=== PATIENT | male | born 1970 | race Caucasian/White ===

== ENCOUNTER 2023-04-25 08:53 | Outpatient (AMB) | payer OTHER, SELFPAY ==
[2023-04-25 08:57] VITALS: BP 120/58; PULSE 78; BMI 44.9
--- NOTE | 2023-04-25 08:57 | MHC.OFFVIS ---
Intake Vital Signs 04/25/23 08:57 Height 5 ft 9 in Weight 304 lb 3.806 oz BMI 44.9 BP 120/58 L Blood Pressure Location Lt brachial Position Sitting Pulse 78 Intake Visit Reasons: Heartburn Intake Note: Lio presents in the office as a new patient for heartburn. CC: For the last year - when he lays down at night he gets severe hearturn. Allergies No Known Allergies [No Known Allergies*] Allergy (Unverified 04/25/23 09:01) HPI HPI Comments History of Present Illness Details This is a 52-year-old gentleman with past medical history of obesity, hypertension, remote history of DVT on Eliquis, who presents to the office for GERD. Patient reports symptom onset almost a year ago -describes it as heartburn mostly at nighttime when he lays down. Triggered typically by fatty or spicy food. He was started on pantoprazole 40 mg in AM by his PCP 3 months ago, despite that has symptoms at least 4/7 nights. This is not associated with any nausea, vomiting, regurgitation, unintentional weight loss or change in bowel habits. Patient has no family history of esophageal or gastric cancer. Of note has not had colorectal cancer screening. PFSH Surgical History Hx of hernia repair Social History Alcohol intake: current Alcohol intake frequency: a few times a week Patient Tobacco Use Status: Current someday Tobacco user Cigarettes Per Day: 1 Use of substances other than those prescribed or required for medical reasons: No Review of Systems Const All systems reviewed & are unremarkable except as noted in HPI and below Physical Exam Vital Signs: Last Vital Signs Pulse 78 04/25/23 08:57 BP 120/58 L 04/25/23 08:57 BMI result Body Mass Index 44.9 Gen appear: NAD HEENT: nonicteric, no cervical lymphadenopathy Chest: CTA CVS: Regular S1/S2 Abd: soft, nontender, nondistended, bowel sounds + Ext: no peripheral edema Neuro: A/Ox3, noted to move all extremities spontaneously Psych: interacting appropriately Assessment & Plan Assessment & Plan (1) GERD (gastroesophageal reflux disease): Code(s): K21.9 - Gastro-esophageal reflux disease without esophagitis (2) Colon cancer screening: Code(s): Z12.11 - Encounter for screening for malignant neoplasm of colon (3) Chronic anticoagulation: Code(s): 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 Sx most consistent with GERD with obesity, sex and smoking as risk factors. Recommend: - Switch pantoprazole to PM - EGD for further eval to r/o esophagitis/gastritis as well as to screen for BE - Pt advised to HOLD PPI x 2 weeks prior to the procedure - Avoid eating within 3 hours of laying down - Wedge pillow 2. CRC screening: Will schedule him for a colonoscopy at the same as the EGD. Split PEG prep instructions reviewed with the pt. He was advised to get updated renal function test done. If normal, will need to hold eliquis x 2 days. Follow up after scopes/ Orders: Orders Basic Metabolic Panel Today K21.9 - Gastro-esophageal reflux disease without esophagitis Ferritin Today K21.9 - Gastro-esophageal reflux disease without esophagitis Complete Blood Count no Diff Today K21.9 - Gastro-esophageal reflux disease without esophagitis Medications: New peg 3350-electrolytes 236-22.74-6.74 -5.86 gram (Golytely) as per split prep instructions, until fecal effluent is clear 240 mL PO Q10M 4,000 mL 0RF colonoscopy Coding Level of Care Code New Pt Level 4 (51202) Diagnoses GERD (gastroesophageal reflux disease) K21.9 Colon cancer screening Z12.11 Chronic anticoagulation Z79.01
== END 2023-04-25 09:48 | disposition home or self-care (01) ==
PROVIDERS: PCP Internal Medicine; Visit Provider Internal Medicine
DX: K21.9 Gastro-esophageal reflux disease without esophagitis (principal); Z12.11 Encounter for screening for malignant neoplasm of colon; Z79.01 Long term (current) use of anticoagulants
CPT/HCPCS: 99204

== ENCOUNTER → 2023-04-25 08:53 | Outpatient (BNVA) | payer OTHER, SELFPAY | PROVIDERS: PCP Internal Medicine; Visit Provider Internal Medicine ==

== ENCOUNTER 2023-05-11 15:14 | Outpatient (REF) | payer OTHER, SELFPAY ==
[2023-05-11 15:32] LABS: Hematocrit 40.9 % (42.0-52.0); Hemoglobin 13.7 g/dl (14.0-18.0); Mean Corpuscular HGB Conc 33.5 g/dl (31.0-36.0); Mean Corpuscular Hemoglobin 31.4 pg (27.0-33.0); Mean Corpuscular Volume 93.8 fL (80.0-98.0); Mean Platelet Volume 8.5 fL (9.4-12.4); Platelet Count 181 X10*3/uL (160-400); Red Blood Count 4.36 X10*6/uL (4.60-5.80); Red Cell Distribution Width 13.9 % (11.0-16.0); White Blood Count 12.9 X10*3/uL (4.8-10.8)
[2023-05-11 16:19] LABS: Anion Gap 12 (12-20); Blood Urea Nitrogen 14 mg/dL (9-16); Calcium 9.9 mg/dL (8.4-10.2); Carbon Dioxide 26 mmol/L (22-29); Chloride 102 mmol/L (96-108); Estimated Glomerular Filt Rate > 60; Glucose Random 110 mg/dL (60-115); Potassium 4.3 mmol/L (3.3-5.1); Sodium 136 mmol/L (135-145)
[2023-05-11 16:29] LABS: Ferritin 413 ng/mL (20-250)
== END 2023-05-11 15:15 | disposition home or self-care (01) ==
LOC: HO.LAB 15:14
PROVIDERS: PCP Nurse Practitioner Family; Visit Provider Internal Medicine
DX: K21.9 Gastro-esophageal reflux disease without esophagitis (principal)
CPT/HCPCS: 36415; 80048; 82728; 85027

== ENCOUNTER 2023-11-11 08:20 | Day surgery (SDC) | payer OTHER, SELFPAY ==
--- NOTE | 2023-11-10 09:55 | HO.ANESPROP2 ---
Documented by User: Susan Sanchez NP 11/10/23 09:57 HPI - Anesthesia Eval Consult details Narrative: 53yo M for Upper Endoscopy and Colonoscopy Eliquis for DVT PMFSH Active Problems Active Problems: All Active Problems (Updated 11/10/23 @ 08:04 by Génesis Cho RN) Chronic anticoagulation (Acute) Colon cancer screening (Acute) GERD (gastroesophageal reflux disease) (Acute) Past Medical History Medical History (Updated 11/10/23 @ 08:04 by Génesis Cho RN) DVT (deep venous thrombosis) HTN (hypertension) Obese Surgical History Surgical History Hx of hernia repair Social History Social History Alcohol intake: current Alcohol intake frequency: a few times a week Patient Tobacco Use Status: Current everyday Tobacco user Cigarette Packs Per Day: 1 Cigarettes Per Day: 20.0 Years Smoked: 40 Date Education Initiated: 11/11/23 Use of substances other than those prescribed or required for medical reasons: No Advance Directives: No Advance Directives Information Provided: Yes Meds Allergies Allergy/AdvReac Type Severity Reaction Status Date / Time No Known Allergies Allergy Unverified 04/25/23 09:01 [No Known Allergies*] Home Medications Medication Instructions Recorded Confirmed Last Taken Type apixaban 5 mg tablet (Eliquis) 5 mg PO BID 04/25/23 11/11/23 11/08/23 History benazepril 40 mg tablet 40 mg PO DAILY 04/25/23 11/11/23 11/11/23 History pantoprazole 40 mg tablet,delayed 40 mg PO DAILY 04/25/23 11/11/23 11/08/23 History release simvastatin 20 mg tablet 20 mg PO BEDTIME 04/25/23 11/11/23 11/11/23 History spironolactone 25 mg tablet 25 mg PO DAILY 04/25/23 11/11/23 11/11/23 History Assessment and Plan Assessment Anesthesia Assessment: Chart Reviewed Documented by User: Rviera Ford MD 11/11/23 09:40 [facility] Past Medical History Medical History (Updated 11/10/23 @ 08:04 by Génesis Cho RN) DVT (deep venous thrombosis) HTN (hypertension) Obese Family History Family history of problems with anesthesia: No Surgical History Surgical History Hx of hernia repair History of Problems with Anesthesia: No Social History Social History Alcohol intake: current Alcohol intake frequency: a few times a week Patient Tobacco Use Status: Current everyday Tobacco user Cigarette Packs Per Day: 1 Cigarettes Per Day: 20.0 Years Smoked: 40 Date Education Initiated: 11/11/23 Use of substances other than those prescribed or required for medical reasons: No Advance Directives: No Advance Directives Information Provided: Yes Meds Allergies Allergy/AdvReac Type Severity Reaction Status Date / Time No Known Allergies Allergy Unverified 04/25/23 09:01 [No Known Allergies*] Home Medications Medication Instructions Recorded Confirmed Last Taken Type apixaban 5 mg tablet (Eliquis) 5 mg PO BID 04/25/23 11/11/23 11/08/23 History benazepril 40 mg tablet 40 mg PO DAILY 04/25/23 11/11/23 11/11/23 History pantoprazole 40 mg tablet,delayed 40 mg PO DAILY 04/25/23 11/11/23 11/08/23 History release simvastatin 20 mg tablet 20 mg PO BEDTIME 04/25/23 11/11/23 11/11/23 History spironolactone 25 mg tablet 25 mg PO DAILY 04/25/23 11/11/23 11/11/23 History Exam Airway Mallampati Class: III TM Dist: >3cm Neck ROM: Full Partial: Upper Loose/Missing/Broken Teeth: Yes, Upper and Lower Assessment and Plan Assessment Anesthesia Assessment: Anesthesia Plan Discussed Final Anesthetic Review Family History of Problems with Anesthesia: No History of Problems with Anesthesia: No NPO: Yes ASA Class: III Final Preanesthetic Review: No Changes in Pt Med Stat, Meds/Allgs Chart Reviewed, Consent Obtained/Reviewed and Anes Risks/Benef Reviewed Patient Risk: Intermediate Procedure Risk: Low Anesthetic Plan Anesthetic Plan: TIVA Disposition: Standard PACU
--- NOTE | 2023-11-11 09:14 | MHC.SHP ---
Pre-Procedural Eval Section A - 24 Hr Update-Section A only Date of Service: 11/11/23 The patient is an INPATIENT: No The patient has been examined within 24 hours of the surgical procedure. The History & Physical has been completed within 30 days and I have reviewed it.: No Section B - Complete if H&P > 30 days Chief Complaint: Colon cancer screening, GERD Relevant Family History (Specify if Yes): No Relevant Social History: Tobacco Use Present Medications: see Short Stay Collaborative assessment Medical History: Significant History (Hx of DVT - on chronic anticoagulation, GERD, hypertension) History of Previous Operations: Relevant previous surgery/procedure and date(s) (History of hernia surgery) Allergies: Allergies Allergy/AdvReac Type Severity Reaction Status Date / Time No Known Allergies Allergy Unverified 04/25/23 09:01 [No Known Allergies*] Review of Systems Sugical H&P ROS: Negative: Constitution, Cardiovascular, Respiratory and Gastrointestinal Exam Surgical H&P Exam: Normal: Heart, Normal: Lungs, Normal: Extremities and Normal: Abdomen Plan Diagnosis/Plan: Unchanged I have reviewed the history and physical and performed a pertinent physical examination on my patient. No changes have occurred unless specified. Time Spent With Patient Time: Total time managing care of this patient today ____ minutes.
[2023-11-11 09:17] VITALS: BMI 57.4
[2023-11-11] MEDS: Lactated Ringers 1,000 ML 100 ML IVCONT (09:40)
[2023-11-11 09:43] VITALS: BP 113/59; PULSE 74; RESP 18; TEMP 36.3; O2SAT 95; BMI 43.4
[2023-11-11] MEDS: Albuterol Sulfate (0.083%) 2.5 MG/3 ML VIAL.NEB INHALE (09:47)
[2023-11-11 09:50] VITALS: PULSE 78; RESP 16; O2SAT 96
--- NOTE | 2023-11-11 09:59 | W.PM.OPN ---
Operative Note Operative Note Date of Service: 11/11/23 Narrative: FLEXIBLE TRANSORAL UPPER GASTROINTESTINAL ENDOSCOPY WITH BIOPSIES AND COLONOSCOPY TILL CECUM WITH SNARE POLYPECTOMY, SUBMUCOSAL INJECTION AND HEMOCLIP PLACEMENT Pre-op diagnosis: Colon cancer screening, GERD Post-op diagnosis: GERD, Gastritis, Colon Polyps, Diverticulosis, Hemorrhoids Endoscopist:? Daniel Orlando MD Anesthesia:?MAC UPPER ENDOSCOPY Consent: Indications for the procedure and potential complications of bleeding, perforation, reaction to medications and missed diagnosis were discussed with the patient and informed consent was obtained. Instrument: Olympus GIF H 190 mid size upper endoscope Monitoring: Vital signs and clinical assessment, continuous EKG monitoring, Pulse oximetry, Carbon Dioxide monitoring and blood pressure monitoring were done throughout the procedure. Procedure: The patient was placed in the left lateral decubitis position and pre-procedure medications were administered and a bite block was placed. The endoscope was inserted into the mouth and advanced under direct vision to the third part of duodenum. A careful inspection was made as the upper endoscope was withdrawn including a retroflexed examination of the proximal stomach; Findings and interventions are described below. Findings: Larynx: Normal Esophagus: GE junction at 44 cms. No esophagitis or Courtney's. Stomach: Moderate diffuse gastric erythema with nodular appearing mucosa in the gastric body. Biopsies were obtained from the body and antrum. Grade 2 flap valve on retroflexed examination of the cardia. Duodenum: Normal bulb and descending duodenum Intervention: Biopsies as noted above COLONOSCOPY PROCEDURE NOTE Consent: Indications for the procedure and potential complications of bleeding, perforation, reaction to medications and missed diagnosis were discussed with the patient and informed consent was obtained. Instrument: Olympus CF H 190 L variable stiffness adult colonoscope Monitoring: Vital signs and clinical assessment, intermittent blood pressure monitoring, continuous EKG monitoring, Pulse oximetry and Carbon Dioxide monitoring were done throughout the procedure. Colon withdrawl time was 45 minutes. Procedure: The patient was placed in the left lateral decubitis position and pre-procedure medications were administered. After a digital rectal examination of the ano-rectum, the video colonoscope was inserted into the rectum and advanced through the colon to the cecum. The colonoscope was slowly withdrawn in a retrograde panoramic fashion and the colon mucosa was carefully examined including a retroflexed view of the rectum. Findings and interventions are described below. Procedure Difficulty: : Without difficulty Findings: Terminal Ileum: Not evaluated Cecum: Normal Ascending Colon: A 12-15 mm flat polyp - raised with 3 cc of [place] and removed with a hot snare. Polypectomy site was closed with 1 hemoclip and marked by Alvina ink Transverse Colon: A 5- 6 mm sessile polyp in the proximal TC - removed with a cold snare. A 10 -12 mm sessile polyp in the proximal TC - removed with a hot snare. Polypectomy site was closed with 1 hemoclip. Two 12-15 mm sessile polyps in the distal TC - removed with a hot snare. Both polypectomy sites were closed with 1 hemoclip each. Descending Colon: Two 10 -12 mm sessile polyps - removed with a hot snare. Both polypectomy sites were closed with 1 hemoclip each. Sigmoid Colon: Two 8 to 10 mm sessile polyps - removed with a hot snare. Moderate diverticulosis Rectum: Normal Ano-rectum: Moderate internal hemorrhoids Colon preparation: Good after some irrigation Impression and Post Procedure Diagnosis: Endoscopy Findings: STOMACH: Moderate diffuse gastric erythema with nodular appearing mucosa in the gastric body. Biopsies were obtained from the body and antrum. Colonoscopy Findings: One small and eight medium sized polyps removed Additional smaller polyps in the left colon which were not removed due to excessive length of the procedure Moderate diverticulosis seen in the sigmoid colon Moderate hemorrhoids on retroflexed exam. Plan: Await pathology results Patient has an appointment on 11/25/23 in the [facility] with Dr Meyer. Repeat Colonoscopy interval based on path results - in 1 year if polyps are adenomatous and for removal of remaining polyps in the left colon. (adult colonoscope for future colonoscopies). Above findings were reviewed with the patient and colon polyps and diverticulosis handouts were given in the discharge area
[2023-11-11 11:11] VITALS: BP 103/44; PULSE 76; RESP 18; TEMP 37.2; O2SAT 96
[2023-11-11 11:26] VITALS: BP 93/41; PULSE 69; RESP 18; O2SAT 97
[2023-11-11 11:41] VITALS: BP 98/44; PULSE 72; RESP 17; O2SAT 96
== END 2023-11-11 12:15 | disposition home or self-care (01) ==
PROVIDERS: PCP Internal Medicine; Visit Provider Internal Medicine Gastroenterology
PROC: (CPT 45385; principal; 2023-11-11 10:50)
DX: Z12.11 Encounter for screening for malignant neoplasm of colon (principal); D12.3 Benign neoplasm of transverse colon; D12.5 Benign neoplasm of sigmoid colon; K63.5 Polyp of colon; K57.30 Diverticulosis of large intestine without perforation or abscess without bleeding; K64.8 Other hemorrhoids; K21.9 Gastro-esophageal reflux disease without esophagitis; K29.50 Unspecified chronic gastritis without bleeding; I10 Essential (primary) hypertension; Z86.718 Personal history of other venous thrombosis and embolism; Z79.01 Long term (current) use of anticoagulants; Z79.899 Other long term (current) drug therapy; E66.9 Obesity, unspecified; Z68.41 Body mass index [BMI] 40.0-44.9, adult; F17.210 Nicotine dependence, cigarettes, uncomplicated; Z98.890 Other specified postprocedural states
CPT/HCPCS: 45385; 45381; 43239; 88305; 88313; 88342; 94640; J2704; J3010

== ENCOUNTER → 2023-11-11 08:20 | Outpatient (BNV) | payer OTHER, SELFPAY | PROVIDERS: PCP Internal Medicine; Visit Provider Internal Medicine Gastroenterology | DX: Z12.11 Encounter for screening for malignant neoplasm of colon (principal); K63.5 Polyp of colon; K57.90 Diverticulosis of intestine, part unspecified, without perforation or abscess without bleeding; K64.8 Other hemorrhoids; K21.9 Gastro-esophageal reflux disease without esophagitis; K29.70 Gastritis, unspecified, without bleeding; K31.89 Other diseases of stomach and duodenum | CPT/HCPCS: 43239; 45381; 45385 ==

== ENCOUNTER 2023-11-25 12:31 | Outpatient (AMB) | payer OTHER, SELFPAY ==
--- NOTE | 2023-11-25 12:37 | MHC.OFFVIS ---
Intake Vital Signs 11/25/23 12:40 Height 5 ft 9 in Weight 293 lb 3.437 oz BMI 43.3 BP 124/61 Blood Pressure Location Lt brachial Position Sitting Pulse 74 Intake Visit Reasons: s/p egd/colon Intake Note: Lio presents in the office as a colonoscopy and egd. CC: He states that he is just here for the results. Allergies No Known Allergies [No Known Allergies*] Allergy (Unverified 11/25/23 12:41) HPI HPI Comments History of Present Illness Details This is a 52-year-old gentleman with past medical history of obesity, hypertension, remote history of DVT on Eliquis, who presents to the office for for post-procedure follow up. 04/25/23 Patient reports symptom onset almost a year ago -describes it as heartburn mostly at nighttime when he lays down. Triggered typically by fatty or spicy food. He was started on pantoprazole 40 mg in AM by his PCP 3 months ago, despite that has symptoms at least 4/7 nights. This is not associated with any nausea, vomiting, regurgitation, unintentional weight loss or change in bowel habits. Patient has no family history of esophageal or gastric cancer. Of note has not had colorectal cancer screening. 11/11/23: EGD/colo (Dr Orlando) STOMACH: Moderate diffuse gastric erythema with nodular appearing mucosa in the gastric body. Biopsies were obtained from the body and antrum. Colonoscopy Findings: One small and eight medium sized polyps removed. Additional smaller polyps in the left colon which were not removed due to excessive length of the procedure. Moderate diverticulosis seen in the sigmoid colon. Moderate hemorrhoids on retroflexed exam. Path: A. Gastric antrum, biopsy: Gastric antral mucosa with minimal chronic inactive inflammation; negative for H pylori, intestinal metaplasia and dysplasia. B. Gastric body, biopsy: Gastric body mucosa with features suggesting proton pump inhibitor effect and minimal chronic inactive gastritis; negative for H pylori, intestinal metaplasia and dysplasia. C. Colon, ascending at 85 cm, polyp: Polypoid colonic mucosa with mild hyperplastic changes; no adenomatous dysplasia seen. D. Colon, transverse, polyps: Tubular adenomas (4 pieces); negative for high-grade dysplasia and carcinoma, and multiple fragments of colonic mucosa with mild hyperplastic changes. E. Colon, descending, polyps: Polypoid colonic mucosa with mild hyperplastic changes; no adenomatous dysplasia seen. F. Colon, sigmoid, polyp: Tubular adenoma; negative for high-grade dysplasia and carcinoma 11/25/23: Here for post-procedure follow up. Scope and path reviewed. At least 4 polyps out of the 9 polyps removed were tubular adenomas. Pt is aware that he will need another colo. [facility] Medical History (Updated 11/25/23 @ 12:53 by Trupti Meyer MD) DVT (deep venous thrombosis) HTN (hypertension) Obese Surgical History (Updated 11/25/23 @ 12:38 by SUMAYA Francis) Hx of colonoscopy History of esophagogastroduodenoscopy (EGD) Hx of hernia repair Social History Alcohol intake: current Alcohol intake frequency: a few times a week Patient Tobacco Use Status: Current everyday Tobacco user Cigarette Packs Per Day: 1 Cigarettes Per Day: 20.0 Years Smoked: 40 Review of Systems Const All systems reviewed & are unremarkable except as noted in HPI and below Physical Exam Vital Signs: Last Vital Signs Pulse 74 11/25/23 12:40 BP 124/61 11/25/23 12:40 BMI result Body Mass Index 43.3 Gen appear: NAD HEENT: nonicteric, no cervical lymphadenopathy Chest: CTA CVS: Regular S1/S2 Abd: soft, nontender, nondistended, bowel sounds + Ext: no peripheral edema Neuro: A/Ox3, noted to move all extremities spontaneously Psych: interacting appropriately Assessment & Plan Assessment & Plan (1) Personal history of colonic polyps: Code(s): Z86.010 - Personal history of colonic polyps Plan Pt would like to schedule his repeat colonoscopy today. - Split PEG prep instructions reviewed - He is aware to HOLD eliquis x2 days prior - Updated labs ordered Follow up after colo Orders: Orders Complete Blood Count no Diff 11/25/23 Z86.010 - Personal history of colonic polyps Basic Metabolic Panel 11/25/23 Z86.010 - Personal history of colonic polyps Medications: New peg 3350-electrolytes 236-22.74-6.74 -5.86 gram (Golytely) as per split prep instructions, until fecal effluent is clear 240 mL PO Q10M 4,000 mL 0RF colonoscopy Coding Level of Care Code Est Pt Level 3 (57951) Diagnoses Personal history of colonic polyps Z86.010
[2023-11-25 12:40] VITALS: BP 124/61; PULSE 74; BMI 43.3
== END 2023-11-25 13:14 | disposition home or self-care (01) ==
PROVIDERS: PCP Nurse Practitioner Family; Referring Provider Nurse Practitioner Family; Visit Provider Internal Medicine
DX: Z86.010 Personal history of colon polyps (principal)
CPT/HCPCS: 99213

== ENCOUNTER → 2023-11-25 12:31 | Outpatient (BNVA) | payer OTHER, SELFPAY | PROVIDERS: PCP Nurse Practitioner Family; Visit Provider Internal Medicine ==